=== PATIENT | male | born 1965 | race Native Hawaiian/Other Pacific Islander ===

== ENCOUNTER 2021-08-23 23:15 | Emergency (ER) | payer BC ==
[~2021-08-23] VITALS: Ht 182.9 cm; Wt 88.5 kg
[2021-08-23 23:56] LABS: POTASSIUM 4.2 mmol/L (3.6-5.2)
[2021-08-23 23:57] LABS: PLATELET COUNT 263 K/uL (142-355)
[2021-08-24 11:58] VITALS: TEMP 37.4
[2021-08-24 16:52] VITALS: BP 136/78
== END 2021-08-24 17:27 | disposition other institution (70) ==
LOC: ED 23:15
PROVIDERS: Hospitalist
DX: F10.229 Alcohol dependence with intoxication, unspecified (principal); Y90.8 Blood alcohol level of 240 mg/100 ml or more; Z11.52 Encounter for screening for COVID-19
CPT/HCPCS: 36415; 80053; 80307; 80320; 80329; 81000; 85027; 87635; 93005; 96360; 96361; 96365; 96366; 96376; 99284; J2060; J3411; J3475; J3490; U0003